=== PATIENT | male | born 1955 | race Caucasian/White ===

== ENCOUNTER → 2017-05-25 | Outpatient (CLI) | payer OTHER, SELFPAY ==
[~2017-05-25] VITALS: Ht 170.2 cm; Wt 98.5 kg
[~2017-05-25] MED LIST: ALPRAZOLAM 0.50.5 M1 PO; ALPRAZOLAM 0.50.5 MG PO; DOLOPHINE HCL10 MG PO; FLOMAX0.4 MG PO; METHADONE HCL 110 M1 PO; MINIPRIN81 MG PO; NEURONTIN 400400 M1 PO; NEURONTIN600 MG PO; NIZORAL120 ML TP; PAROXETINE HCL10 MG PO; PAXIL 20 MG TAB20 MG PO; PAXIL20 MG PO; PAXIL40 MG PO; STOOL SOFTENER1 EAC2 PO; XANAX 0.25 MG0.25 MG PO; XANAX 0.5 MG0.5 M1 PO; ZOCOR 20 MG TAB20 M1 PO
[2017-05-25 10:52] VITALS: BP 139/73
== END | disposition home or self-care (01) ==
LOC: PAIN 06:44
DX: G90.512 Complex regional pain syndrome I of left upper limb (principal); F41.9 Anxiety disorder, unspecified

== ENCOUNTER → 2017-12-14 | Outpatient (CLI) | payer OTHER ==
[~2017-12-14] VITALS: Ht 170.2 cm; Wt 99.8 kg
[~2017-12-14] MED LIST changes: +ASPIR 8181 MG PO; +NEURONTIN 300300 M1 PO
--- NOTE | ~2017-12-14 | HPC ---
[facility] [address] [address] PAIN MANAGEMENT CONSULTATION Name: KENPRASHANT HEADLEY Room #: REG ANNAMARIE BrittDayPushpa.#: [id number] Admission: 12/14/17 Attend Phys: Keny Gallo MD Discharge: Date of : 51 Report #: [id number] THIS REPORT FOR: //name// CC: [facility] physician/PCP Keny Gallo DATE OF SERVICE: 12/14/2017 Followup visit for chronic left upper extremity pain, complex regional pain syndrome and new onset gout, left lower extremity great toe. The patient returns to clinic today for medication management. He has been a patient of ours dating back to 1999. I have an opioid agreement signed over 10 years ago. We have reviewed this contract with him on several occasions. He has shown no misuse or abuse of medication over the years and has been quite stable. Today, he reports that his pain is an 8/10 mostly because of the gout that he is experiencing in his left foot. He was seen in the Emergency Room at , was started on a prednisone Dosepak. He has a solitary kidney and cannot be started on colchicine or allopurinol. This has been quite miserable particularly with the cold weather. This is improving slightly with the use of the prednisone. He also has pain that is constant in his left upper extremity related to nerve injury and complex regional pain syndrome. CURRENT MEDICATIONS: Methadone 10 mg 3 times a day, alprazolam 0.5 mg 3 times a day, paroxetine 10 mg at bedtime. He takes Senokot S as a softener daily to help with opioid-related constipation, this works effectively. He takes an 81 mg a day aspirin. The combination of opioid and benzodiazepine has been reviewed in the past. He has been on these medicines in combination dating back roughly 7-8 years without issue. He knows that in increased doses these can be lethal in particular for patients who are opioid naive. He will keep medications under close observation per terms of our agreement. He is disabled, but volunteers where he can. He is very faithful and attends his anabaptist. His kristen is an important influence in his life providing him with comfort and aide. PQRS review shows that he has a history of gout, but there is no history of osteoarthritis. He has several joints that ache and he most likely has degenerative joint disease. His BMI is 34.4 and he was counseled today about diet and wellness. Blood pressure 132/92, heart rate 76, respirations 14, O2 sats 98%. Pain intensity is 8/10. He is not a fall risk, does not use a walker. He has discussed possibly decreasing his Paxil due to dizziness, [address] [address] PAIN MANAGEMENT CONSULTATION Name: PRASHANT ROGERS Room #: REG [facility] Jasmyne.#: [id number] Admission: 12/14/17 Attend Phys: Keny Gallo MD Discharge: Date of : 51 Report #: [id number] however. He is not hypertensive. He does have an opioid agreement on his chart, most recently reviewed and resigned in 2017. Risk assessment tool suggests that he has moderate risks and his functional assessment tool is 67/70, suggesting a high impact of his pain on his life. Goals are to continue to be independent and functional to be able to assist others and to minimize his use of opioids if possible. We talked today about reducing his reliance on methadone. He is concerned about the future with further scrutiny on opioids and the treatment of intractable pain. PHYSICAL EXAMINATION: GENERAL: Pleasant, alert and oriented. VITAL SIGNS: Blood pressure 132/92, heart rate 76, BMI is 34.4. 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 Most of his pain remains around the scar of his hand. He has swelling and tenderness of the great toe on the left foot. IMPRESSION: 1. Chronic intractable pain, left upper extremity, complex regional pain syndrome. 2. Acute left foot pain, diagnosed as gout at the [facility] and he is currently on a prednisone Dosepak. 3. Management of high risk medications under terms of an opioid agreement. 4. Chronic anxiety disorder and situational depression. He was counseled today for 25 minutes. Medications were provided. Review of his opioid agreement once again and the CDC guidelines, and I plan to see him back in the Pain Clinic in 3 months. <ELECTRONICALLY SIGNED> By: Keny Gallo MD 01/10/18 [id number] [id number] Keny Gallo MD /nt
[2017-12-14 10:22] VITALS: BP 132/92
== END ==
LOC: PAIN 06:48
DX: G90.512 Complex regional pain syndrome I of left upper limb (principal); M10.9 Gout, unspecified; F11.90 Opioid use, unspecified, uncomplicated; F41.8 Other specified anxiety disorders; F32.9 Major depressive disorder, single episode, unspecified; Z79.899 Other long term (current) drug therapy

== ENCOUNTER → 2018-04-16 | Outpatient (CLI) | payer OTHER ==
[~2018-04-16] VITALS: Ht 170.2 cm; Wt 102.9 kg
--- NOTE | ~2018-04-16 | HPC ---
[facility] [address] [address] PAIN MANAGEMENT CONSULTATION Name: KENPRASHANT HEADLEY Room #: REG ANNAMARIE Jasmyne.#: [id number] Admission: 04/16/18 Attend Phys: Keny Gallo MD Discharge: Date of : 51 Report #: [id number] THIS REPORT FOR: //name// CC: [facility] physician/PCP Keny Gallo DATE OF SERVICE: 04/16/2018 Followup visit for management of medication for chronic intractable pain. The patient returns to clinic for 3-month followup. He has come to see me from [place], [place] traveling here by bus. He is in chronic pain, mostly in his left upper extremity where he has history of complex regional pain syndrome, which has always hurt him and continues to ache on a daily basis. He was suffering with gout at last visit, but it was treated effectively and he is not complaining of pain so much today. He reports that his pain is an 8/10, worsened by weather. Any sort of activity, lifting or cold weather seems to aggravate his pain as well. He has not been hospitalized and there has been no interval significant change in his health since his last visit here. He does not have a primary care physician and I have instructed him to try and locate someone. I would like for his blood pressure and other medications to be evaluated. He remains on methadone, which creates a high morphine milligram equivalency dose due to its 4:1 MME. We reviewed these issues involving the CDC guideline and also we have talked about the important aspect of his opioid agreement once again as we do it nearly every visit. He is grateful for the pain relief, feels that he is more functional when the pain is controlled with these good medications and denies any significant side effects. He has never had any evidence of misuse or abuse and we will continue at my discretion to order buccal drug screens. PQRS shows that he is not smoking or using alcohol. He is not a fall risk. He is on no blood thinners. He is not hypertensive typically, although I note his blood pressure today has a diastolic elevation at 89. I want him to see a primary care physician about getting on some medication. PHYSICAL EXAMINATION: Blood pressure 145/89, heart rate 73, BMI is 35.5. He moves from sitting to standing position, walks without difficulty. Examination of the left arm reveals a scar and local discomfort and tenderness with mild allodynia consistent with some hypersympathetic activity. IMPRESSION: 1. Chronic intractable pain, left upper extremity with complex regional pain [facility] [address] [place] [address] PAIN MANAGEMENT CONSULTATION Name: KENPRASHANTCamille HEADLEY Room #: REG CLAdalgisa Leonides#: [id number] Admission: 04/16/18 Attend Phys: Keny Gallo MD Discharge: Date of : 51 Report #: [id number] syndrome. 2. Management of high risk medications under terms of written opioid agreement. 3. Chronic anxiety disorder and depression. He is doing okay today. He will remain on his Paxil. He asked me today about bipolar illness and he thinks he may have that. I have talked to him about seeing a psychiatrist to determine whether or not he would be a candidate. We talked about additional drugs that are utilized including lithium and some of the antipsychotic medications such as Zyprexa, which have been used to treat bipolar illness. I want to be cautious about putting him on anything without having him see a clinical psychologist since he is already on 4 centrally acting medications through our clinic, methadone, Xanax, Paxil, and gabapentin. Typical doses were renewed today, methadone 10 mg t.i.d., Xanax 0.5 mg 3 times daily, chronic use for anxiety, Paxil 10 mg at bedtime, gabapentin 300 mg t.i.d. Followup visit planned in the pain clinic in 3 months. By: [id number] Keny Gallo MD /nt
[2018-04-16 13:34] VITALS: BP 145/89
== END ==
LOC: PAIN 06:58
DX: G90.512 Complex regional pain syndrome I of left upper limb (principal); F11.90 Opioid use, unspecified, uncomplicated; F41.9 Anxiety disorder, unspecified; F32.9 Major depressive disorder, single episode, unspecified

== ENCOUNTER → 2018-08-14 | Outpatient (CLI) | payer OTHER ==
[~2018-08-14] VITALS: Ht 170.2 cm; Wt 101.2 kg
--- NOTE | ~2018-08-14 | HPC ---
[facility] [address] [address] [place] [address] PAIN MANAGEMENT CONSULTATION Name: KENPRASHANT HEADLEY Room #: REG ANNAMARIE TawannaPushpa.#: [id number] Admission: 08/14/18 Attend Phys: Keny Gallo MD Discharge: Date of : 51 Report #: [id number] THIS REPORT FOR: //name// CC: [facility] physician/PCP Keny Gallo DATE OF SERVICE: 08/14/2018 Followup visit for chronic intractable pain. The patient has complex regional pain syndrome, left upper extremity. I have now been his treating physician for nearly 2 decades. He first came to our clinic in the . He was one of her first opioid agreement patients. I looked back and we have signed agreements in the , 2004 and also more recently in 2016. He has used his medications carefully and cautiously. I have checked the K-TRACS list things at his visit and he is true to his prescribing agreement. All medications provided from our clinic. He has an anxiety disorder and takes alprazolam also 3 times a day and we have had talks in the past about this combination, but he has shown great resilience and resistance to any sort of over sedation. He needs the anxiolytic and I would love to send him off to counseling, but he is not wealthy and money is always an object. He comes to me and we have spent a good 25 minutes counseling. Reports the pain is generally worsened by weather. The upcoming months move into cooler weather temperatures. I anticipate that his activities will decrease some. He has been able to take care of himself independently. He is grateful for the pain relief that allows him to do so. He has no significant side effects. PQRS shows that he continues to avoid use of tobacco and alcohol. He is a strong Tenriism. He is not a fall risk. He is on no blood thinners. His blood pressure has been slightly elevated on the diastolic side and I have again encouraged him to try and find a primary care physician, perhaps someone at closer to home. There is also [facility] close by that might be able to just monitor his blood pressure and help him with medication. PHYSICAL EXAMINATION: Today, his blood pressure is 141/90, heart rate 56. His BMI is 34.9. We discussed the importance of weight control. He is on no blood thinners. He is at moderate risk for addiction and so we see him and counseled appropriately. His opioid agreement was reviewed in detail. I let him check his right arm. He still has some allodynia. Scarring in his right hand prevents full use of that left hand and arm. [address] [address] PAIN MANAGEMENT CONSULTATION Name: KENPRASHANTCamille HEADLEY [facility] #: [facility]#: [id number] Admission: 08/14/18 Attend Phys: Keny Gallo MD Discharge: Date of : 51 Report #: [id number] IMPRESSION: 1. Chronic intractable pain, left upper extremity with complex regional pain syndrome. 2. Management of high risk medications under terms of an opioid agreement. 3. Chronic anxiety disorder and depression disorder. We will continue him on Paxil and p.r.n. alprazolam which he feels is extremely helpful. PLAN: I have talked to him again about the possibility of seeing a clinical psychologist, but I see a great reluctance in him in establishing that relationship. Followup visit planned in 3 months. By: [id number] Keny Gallo MD /nt
[2018-08-14 10:50] VITALS: BP 141/90
== END ==
LOC: PAIN 08-09 12:46
DX: G89.29 Other chronic pain (principal); F32.9 Major depressive disorder, single episode, unspecified; F41.9 Anxiety disorder, unspecified; Z79.899 Other long term (current) drug therapy

== ENCOUNTER → 2018-11-19 | Outpatient (CLI) | payer OTHER ==
[~2018-11-19] VITALS: Ht 170.2 cm; Wt 104.3 kg
--- NOTE | ~2018-11-19 | HPC ---
[facility] [place] [address] [place] [address] PAIN MANAGEMENT CONSULTATION Name: KENPRASHANTCamille HEADLEY Room #: REG ANNAMARIE Jasmyne.#: [id number] Admission: 11/19/18 Attend Phys: Keny Gallo MD Discharge: Date of : 51 Report #: [id number] THIS REPORT FOR: //name// CC: [facility] physician/PCP Keny Gallo DATE OF SERVICE: 11/21/2018 CHIEF COMPLAINT: Chronic right arm pain with complex regional pain syndrome and neuropathic pain. The patient has been a longstanding patient on opioid medication for over 20 years. He has been receiving medications under terms of our opioid agreement to have provided good pain relief and he has had no misuse or abuse. We have followed his medication prescriptions on the prescription drug monitoring program [employer] and he has been true to his prescriptions. He has chronic anxiety disorder and also takes alprazolam. I have discussed with him on several occasions the concern regarding the combination of alprazolam and an opioid. He has shown no issues of oversedation with these medications and they seem to help him deal with his chronic anxiety. Nonetheless, he is willing at today's visit to make an effort to taper his alprazolam and in the future, perhaps consider tapering his methadone, although he has remained fairly stable. PQRS REVIEW: 1. There is no history of osteoarthritis or rheumatoid arthritis. 2. His BMI is 36.0. We have discussed diet and exercise as weight control measures. 3. Pain intensity is reported at 9/10, although this is not constant and intermittent. 4. He is not a fall risk. 5. He is on no blood thinning medications. 6. No history of hypertension or treatment. 7. He is on opioid therapy for many years. I signed an opioid agreement and is considered at moderate risk for addiction by the opioid risk tool. He is followed carefully through the monitoring available. 8. He denies any history of recreational use, tobacco or current use of alcohol. PHYSICAL EXAMINATION: VITAL SIGNS: Blood pressure is 146/100, heart rate 66, respirations 16. GENERAL: He is pleasant, but somewhat anxious and mildly depressed. EXTREMITIES: Examination of the right hand reveals good geometrician, although he complains of some new pain on the right. His left hand shows a claw hand with allodynia and scarring. Light touch discomfort is noted consistent with [facility] [address] [place] [address] PAIN MANAGEMENT CONSULTATION Name: PRASHANT ROGERS Room #: REG [facility] Jasmyne.#: [id number] Admission: 11/19/18 Attend Phys: Keny Gallo MD Discharge: Date of : 51 Report #: [id number] allodynia of complex regional pain syndrome. IMPRESSION: 1. Chronic intractable pain, left upper extremity with complex regional pain syndrome. 2. Chronic anxiety disorder and depression. 3. Management of polypharmacy and high risk medications. RECOMMENDATIONS: Our discussion today involved review of his opioid agreement and the discussions regarding tapering of benzodiazepine and perhaps attempting to find a lower dose of methadone in the future if possible. We talked about nonpharmacologic stress management techniques and the important wellness behaviors that can enhance mood. He falls heavily on his [employer] kristen. Finally, he had been taking Paxil 3 times a day. I think this is an excessive dose. He had discontinued his Paxil because he ran out taking in inappropriately. I have encouraged him because of his depression to restart Paxil, which has been helpful in the past as single tablet per day. I am not sure how he got confused. It was renewed today in addition to his medication. DISCHARGE MEDICATIONS: Include methadone 10 mg t.i.d., paroxetine 10 mg once daily, gabapentin 300 mg t.i.d. and alprazolam 0.5 mg b.i.d. p.r.n. severe anxiety. FOLLOWUP: Followup visit planned in 3 months. Complex office visit 25 minutes. By: [id number] Keny Gallo MD /nt
[2018-11-19 11:05] VITALS: BP 146/101
--- NOTE | 2018-11-19 11:07 | NUR ---
Pain Clinic Assessment: 1. History of Osteoarthritis: Not Applicable History of Rheumatoid Arthritis: Not Applicable 2. Height: 5 ft. 7 in. 170.2 cm. Weight: 230.0 lb. oz. 104.328 kg. Patient's BMI: 36.0 3. Vital Signs: BP: 146/101 Pulse: 66 Resp: 16 Temp: 02 Sat: 99 ECG Mon: 4. Pain Intensity: 9 5. Fall Risk: Dizziness: N Needs help standing or walking: N Fallen in the last 3 months: N Fall risk comments: 6. Patient on Blood Thinner: None 7. History of Hypertension: N 8. Opioid Therapy greater than 6 weeks: Y Opiate Contract Signed: 01/12/17 9. Risk Assessment Tool Provided: MOD RISK-7 10. Functional Assessment Tool: 11. Recreational Drug Use: Past greater than 3 mos Drug Type: Tobacco Use: Never Smoker Tobacco Type: Amount or Packs/day: How Many Years: Alcohol Use: Past use Frequency: Quant:
== END ==
LOC: PAIN 07:33
DX: G90.50 Complex regional pain syndrome I, unspecified (principal); G89.4 Chronic pain syndrome; F32.9 Major depressive disorder, single episode, unspecified; F41.9 Anxiety disorder, unspecified; Z79.899 Other long term (current) drug therapy

== ENCOUNTER → 2018-12-17 | Outpatient (CLI) | payer OTHER ==
[~2018-12-17] VITALS: Ht 167.6 cm; Wt 100.5 kg
[2018-12-17 12:42] VITALS: BP 143/99
--- NOTE | 2018-12-17 12:44 | NUR ---
Pain Clinic Assessment: 1. History of Osteoarthritis: Not Applicable History of Rheumatoid Arthritis: Not Applicable 2. Height: 5 ft. 6 in. 167.6 cm. Weight: 221.6 lb. oz. 100.517 kg. Patient's BMI: 35.8 3. Vital Signs: BP: 143/99 Pulse: 72 Resp: 18 Temp: 02 Sat: 97 ECG Mon: 4. Pain Intensity: 8 5. Fall Risk: Dizziness: N Needs help standing or walking: N Fallen in the last 3 months: N Fall risk comments: 6. Patient on Blood Thinner: None 7. History of Hypertension: N 8. Opioid Therapy greater than 6 weeks: Y Opiate Contract Signed: 01/12/17 9. Risk Assessment Tool Provided: MOD RISK-7 10. Functional Assessment Tool: 11. Recreational Drug Use: Past greater than 3 mos Drug Type: Tobacco Use: Never Smoker Tobacco Type: Amount or Packs/day: How Many Years: Alcohol Use: Past use Frequency: Quant:
--- NOTE | 2018-12-19 15:34 | HPC ---
[facility] [address] [place] [address] PAIN MANAGEMENT CONSULTATION Name: KENPRASHANT Room #: REG ANNAMARIE BrittDayPushpa.#: [id number] Admission: 12/17/18 Attend Phys: Keny Gallo MD Discharge: Date of : 51 Report #: [id number] THIS REPORT FOR: //name// CC: [facility] physician/PCP Keny Gallo DATE OF SERVICE: 12/17/2018 CHIEF COMPLAINT: Right arm pain severe with neuropathic features, complex regional pain syndrome and cervical radiculopathy. The patient returns to pain clinic today for cervical epidural injection. These have been helpful in the past. He has been tapering his Paxil and alprazolam. He has gotten so much trouble at the pharmacy about being on alprazolam that he is going to go off of it. He has had an anxiety disorder for decades. Both of these medications have been helpful in the past, but he seems to be doing well, as he tapers off. Methadone is another story. Without the methadone, his pain is severe, 9/10 and he is unable to function. We will see how he does tapering off these other two centrally-acting medications. He may be a candidate for buspirone, but it is now on backorder I have read in one of the medical journals last evening. PHYSICAL EXAMINATION: GENERAL: He is pleasant, slightly depressed, alert. VITAL SIGNS: Blood pressure is 145/99, heart rate 72, respirations 18. NECK: He has pain with neck flexion, extension and rotation. Tenderness across the cervical spine. EXTREMITIES: The left arm demonstrates scarring in the hand. There is discomfort and allodynia noted in the forearm and in the upper arm. Caterpillar Mechanic strength is diminished markedly. IMPRESSION AND PLAN: 1. Chronic intractable pain, left upper extremity with complex regional pain syndrome and cervical radiculopathy. 2. Chronic anxiety disorder and depression. Tapering off of medication. We will follow closely. 3. Management of high risk medications. He has medications to carry him through December. I plan to see him back in January for medication management. PLAN: Epidural steroid injection cervical C6-C7 under fluoroscopic guidance. PROCEDURE: After informed consent, the patient was taken to fluoroscopic suite, placed prone, skin prepped with ChloraPrep. Skin anesthetized over the C6-C7 interspace. A 20-gauge Tuohy epidural needle advanced at first attempt into the epidural space with loss of resistance technique. There was no blood nor CSF [address] [address] PAIN MANAGEMENT CONSULTATION Name: PRASHANT ROGERS Room #: REG CLI Leonides#: [id number] Admission: 12/17/18 Attend Phys: Keny Gallo MD Discharge: Date of : 51 Report #: [id number] aspirated. 1 mL of Omnipaque injected. Good spread of dye observed in the epidural space following bilateral distribution, was followed by 3 mL of 0.5% lidocaine mixed with 80 mg of triamcinolone. He tolerated the procedure well. He was followed in Recovery Room for about 45 minutes and discharged with improvement in pain intensity. Followup visit planned as needed. <ELECTRONICALLY SIGNED> By: Keny Gallo MD 12/19/18 1534 [id number] [id number] Keny Gallo MD /nt
== END | disposition home or self-care (01) ==
LOC: PAIN 07:03
DX: M54.12 Radiculopathy, cervical region (principal); G90.512 Complex regional pain syndrome I of left upper limb; F41.8 Other specified anxiety disorders; F32.89 Other specified depressive episodes; Z79.891 Long term (current) use of opiate analgesic; Z79.82 Long term (current) use of aspirin; Z79.899 Other long term (current) drug therapy

== ENCOUNTER → 2019-03-04 | Outpatient (CLI) | payer OTHER ==
[~2019-03-04] VITALS: Ht 167.6 cm; Wt 95.1 kg
[~2019-03-04] MED LIST changes: +NORVASC5 MG PO
[2019-03-04 12:49] VITALS: BP 123/73
--- NOTE | 2019-03-04 13:10 | NUR ---
Pain Clinic Assessment: 1. History of Osteoarthritis: Not Applicable History of Rheumatoid Arthritis: Not Applicable 2. Height: 5 ft. 6 in. 167.6 cm. Weight: 209.6 lb. oz. 95.074 kg. Patient's BMI: 33.8 3. Vital Signs: BP: 123/73 Pulse: 70 Resp: 16 Temp: 02 Sat: 97 ECG Mon: 4. Pain Intensity: 8 5. Fall Risk: Dizziness: N Needs help standing or walking: N Fallen in the last 3 months: N Fall risk comments: 6. Patient on Blood Thinner: None 7. History of Hypertension: N 8. Opioid Therapy greater than 6 weeks: Y Opiate Contract Signed: 01/12/17 9. Risk Assessment Tool Provided: MOD RISK-7 10. Functional Assessment Tool: 11. Recreational Drug Use: Past greater than 3 mos Drug Type: Tobacco Use: Never Smoker Tobacco Type: Amount or Packs/day: How Many Years: Alcohol Use: Past use Frequency: Quant:
--- NOTE | 2019-03-07 12:23 | HPC ---
[facility] [address] [address] PAIN MANAGEMENT CONSULTATION Name: KENPRASHANT KAYODE Room #: REG ANNAMARIE Jasmyne.#: [id number] Admission: 03/04/19 ������������������ Attend Phys: Keny Gallo MD Discharge: ������������������ Date of : 51 Report #: [id number] THIS REPORT FOR: //name// CC: FAM physician/PCP Keny Gallo DATE OF SERVICE: 03/04/2019 No family physician. The patient returns to pain clinic today in followup and seems to be in his old self. There was a period of time around October where he seemed to be a bit more anxious and paranoid. He had been off his Paxil and then took it too heavily. He is now back on 10 mg once a day and that seems to be just right. His pain is well controlled. His mood disorder seems to be improved, Seems to be happier. He is taking methadone 10 mg 3 times a day with no significant side effects, this has helped significantly. He has also had good relief it appears with cervical epidural injection we performed for him at last visit. PQRS review is positive for a BMI of 33.8 and a pain intensity of 8/10. He is not a fall risk. He is on no blood thinners. He was recently started on amlodipine. He has an opioid agreement on his chart, is at moderate risk for addiction with score 7/10. Denies use of tobacco and alcohol. PHYSICAL EXAMINATION: GENERAL: He is really pleasant today, seems more like relaxed ____ I have seen on so many occasions. VITAL SIGNS: His blood pressure is 123/73, heart rate 70, respirations 16, O2 sat 97, height 5 feet 6 inches, weight 209 pounds. MUSCULOSKELETAL: His cervical range of motion is excellent. Left arm is nontender to touch. He has decreased facs teacher strength with scarring noted in the left upper extremity. No allodynia is noted today after the epidural. IMPRESSION: 1. Chronic intractable pain, left upper extremity with complex regional pain syndrome and cervical radiculopathy. This is much improved following epidural injection performed in December. 2. Chronic anxiety and depression, much improved on Paxil 10 mg. I have encouraged him to stay at this dose. 3. Management of high risk medication, methadone 10 mg t.i.d. This calculates to an MME of 90. PLAN: Medications renewed for him under terms of our agreement. He will carefully safeguard his medications. He is grateful for the improvement in [address] [address] PAIN MANAGEMENT CONSULTATION Name: PRASHANT ROGERS Room #: REG CLI [facility].#: [id number] Admission: 03/04/19 ������������������ Attend Phys: Keny Gallo MD Discharge: ������������������ Date of : 51 Report #: [id number] day-to-day function and also a reduction in pain that he achieves from his medicines. He will safeguard his medication carefully. Followup visit planned in 3 months. ��������������������������������������������� <ELECTRONICALLY SIGNED> ���������������������������������������� By: Keny Gallo MD ��������������������������������������������� 03/07/19 1223 [id number] Keny Gallo MD /marco
== END ==
LOC: PAIN 07:13
DX: G90.522 Complex regional pain syndrome I of left lower limb (principal); M54.12 Radiculopathy, cervical region; F41.9 Anxiety disorder, unspecified; F32.9 Major depressive disorder, single episode, unspecified; Z79.891 Long term (current) use of opiate analgesic

== ENCOUNTER → 2019-07-01 | Outpatient (CLI) | payer OTHER ==
[~2019-07-01] VITALS: Ht 167.6 cm; Wt 98.2 kg
[~2019-07-01] MED LIST changes: +PAXIL10 MG PO
[2019-07-01 10:49] VITALS: BP 135/85
--- NOTE | 2019-07-01 10:56 | NUR ---
Pain Clinic Assessment: 1. History of Osteoarthritis: Not Applicable History of Rheumatoid Arthritis: Not Applicable 2. Height: 5 ft. 6 in. 167.6 cm. Weight: 216.4 lb. oz. 98.159 kg. Patient's BMI: 34.9 3. Vital Signs: BP: 135/85 Pulse: 66 Resp: 16 Temp: 02 Sat: 100 ECG Mon: 4. Pain Intensity: 8 5. Fall Risk: Dizziness: N Needs help standing or walking: N Fallen in the last 3 months: N Fall risk comments: 6. Patient on Blood Thinner: None 7. History of Hypertension: N 8. Opioid Therapy greater than 6 weeks: Y Opiate Contract Signed: 01/12/17 9. Risk Assessment Tool Provided: MOD RISK-7 10. Functional Assessment Tool: 11. Recreational Drug Use: Past greater than 3 mos Drug Type: Tobacco Use: Never Smoker Tobacco Type: Amount or Packs/day: How Many Years: Alcohol Use: Past use Frequency: Quant:
--- NOTE | 2019-07-02 08:17 | HPC ---
[facility] [address] [place] [address] PAIN MANAGEMENT CONSULTATION Name: KENPRASHANTCamille HEADLEY Room #: REG [facility] Jasmyne.#: [id number] Admission: 07/01/19 Attend Phys: Vero Travis Discharge: Date of : 51 Report #: [id number] THIS REPORT FOR: //name// CC: Vero Travis [facility] physician/PCP DATE OF SERVICE: 07/01/2019 CHIEF COMPLAINT: Chronic intractable pain and complex regional pain syndrome and cervical radiculopathy. HISTORY OF PRESENT ILLNESS: This is a very pleasant 63-year-old gentleman who returns to the pain clinic today for refill of his medications that he uses to help treat his ongoing complex regional pain syndrome in his left upper extremity as well as his cervical radiculopathy. He would also like to discuss his Paxil. He feels that his antidepressant is not working as well, wondering if he should come off of this or what options that we have for him. He still tells me that he suffers from depression and anxiety both. The patient rates his pain score an 8/10 today, is an achy feeling, worse with weather changes and the medication he takes are very beneficial. ALLERGIES: No known drug allergies. CURRENT LIST OF MEDICATIONS: Amlodipine 5 mg, Paxil 10 mg, methadone 10 mg 3 times a day, gabapentin 300 mg 3 times a day, aspirin and stool softener. PQRS: 1. The patient denies any osteoarthritis or rheumatoid arthritis. 2. Height is 5 feet 6 inches, weight is 209, BMI is 33. 3. Vital signs 123/73, pulse is 70, respirations 16, oxygen sat is 97. 4. Pain score is 8/10. 5. Denies dizziness, does not need help walking or standing, has not fallen in the last 3 months. 6. The patient is not on any blood thinners. He does take medicine for hypertension. 7. Opioid therapy is greater than 6 weeks; therefore, an opioid signed contract is on the chart. His risk assessment tool is moderate. Functional assessment is 53/70. 8. Recreational drug use in the past. He is not a smoker and does not drink alcohol. According to the prescription monitoring system, the patient is filling appropriately for his medications. He is due for those to be filled today. PHYSICAL EXAMINATION: GENERAL: This is a very pleasant 63-year-old gentleman who appears his stated [facility] [address] [place] [address] PAIN MANAGEMENT CONSULTATION Name: PRASHANT ROGERS Room #: REG ANNAMARIE Coyle#: [id number] Admission: 07/01/19 Attend Phys: Vero Travis Discharge: Date of : 51 Report #: [id number] age, slightly depressed, who is alert and orientated. HEENT: Normocephalic, atraumatic. Extraocular eye muscles are intact. Mucous membranes are moist. MUSCULOSKELETAL: Cervical range of motion is adequate. His left arm is nontender to the touch. He does keep it in a guarded position. 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 No allodynia noted and tenderness across his cervical spine. IMPRESSION: 1. Chronic intractable pain, left upper extremity pain with complex regional pain syndrome. 2. Cervical radiculopathy. 3. Chronic anxiety and depression. 4. Management of high risk medications on methadone. We reviewed the fact that opiate medications are being used to provide analgesia adequate to support activities of daily living, not attempting to achieve a specific pain score on the 0-10 Visual Analog Scale. The current opiate medications are providing sufficient analgesia to allow the patient to participate in activities of daily living. The patient is not exhibiting any aberrant behavior suggestive of drug diversion. The patient is not having any adverse reactions to medications. The patient is not suffering from daytime somnolence or mental acuity changes. The patient is managing opiate-induced constipation with appropriate gydd-vtz-[id number] agents and dietary considerations. The patient was counseled on concern for caution with operating a motor vehicle while using opiate medications. A physical exam was performed and the patient's functional status was evaluated. All patients with back pain were advised against the bed rest greater than 4 days and were advised to return to normal activities. Pain score assessment was noted and the treatment plan was reviewed with the patient. All current medications, both prescribed and OTC were reviewed and reconciled on the electronic medical record. Tobacco screening was accomplished and smoking cessation was advised when indicated. BMI was noted and diet/exercise modification was recommended for all patients following outside normal parameters. I reviewed with the patient today their responsibilities to safeguard prescription medications, reviewed their responsibility to utilize medications only as prescribed by the physician. They are to seek and receive pain medications only from 1 physician group ( [facility]). They are to use 1 pharmacy and keep the clinic informed if they change pharmacies. Their responsibilities include making followup visits in a timely fashion and to avoid abrupt discontinuation of medication usage. Their responsibilities further include bringing their medications (bottles from the pharmacy with residual pills) to the visit for possible confirmation of pill counts and the patient [address] [address] PAIN MANAGEMENT CONSULTATION Name: PRASHANT ROGERS Room #: REG CLAdalgisa Coyle#: [id number] Admission: 07/01/19 Attend Phys: Vero Travis Discharge: Date of : 51 Report #: [id number] understands it is their responsibility to submit to random drug screens to ensure both that the medications prescribed are present, and that no other controlled substances are present. All prescriptions provided today were generated electronically. PLAN: 1. We discussed treatment options with the patient today. The patient finds the methadone very beneficial in controlling his pain. This medicine was refilled 10 mg 3 times a day #90 for today for an 8-week release. This places him at 90 MME. 2. Gabapentin 300 mg t.i.d., #90 with 2 additional refills were given. 3. We discussed his Paxil dose, at first the patient felt that it was not beneficial and wanted to go off this medicine, then with further discussion we decided to increase this to 20 mg a day. The patient is to take two 10 mg tablets for at least a month before he does not feel that is beneficial. This should aid with his depression and his anxiety symptoms. The patient had been on alprazolam in the past, but had stopped that due to the opioid, benzodiazepine concerns that the CDC is warning people against. Scripts given for #60 with 2 additional refills. The patient understands to take 2 tablets and is hopeful that this will help some of his depression. He will call in 1 month time period. If he finds this beneficial, then we will call in a prescription for 20 mg tablets and avoid the refills for the 10 mg 4. The patient is seen in collaboration today with Dr. Keny Gallo. <ELECTRONICALLY SIGNED> By: Vero Travis 07/02/19 [id number]
== END ==
LOC: PAIN 06:55
DX: M54.12 Radiculopathy, cervical region (principal); G90.50 Complex regional pain syndrome I, unspecified; F41.9 Anxiety disorder, unspecified; F32.9 Major depressive disorder, single episode, unspecified; Z79.891 Long term (current) use of opiate analgesic

== ENCOUNTER → 2019-10-24 | Outpatient (CLI) | payer OTHER ==
[~2019-10-24] VITALS: Ht 167.6 cm; Wt 101.3 kg
[~2019-10-24] MED LIST changes: +NEURONTIN300 MG PO
[2019-10-24 13:10] VITALS: BP 141/75
--- NOTE | 2019-10-24 13:31 | NUR ---
Pain Clinic Assessment: 1. History of Osteoarthritis: Not Applicable History of Rheumatoid Arthritis: Not Applicable 2. Height: 5 ft. 6 in. 167.6 cm. Weight: 223.4 lb. oz. 101.334 kg. Patient's BMI: 36.1 3. Vital Signs: BP: 141/75 Pulse: 65 Resp: 16 Temp: 02 Sat: 97 ECG Mon: 4. Pain Intensity: 8-9 5. Fall Risk: Dizziness: N Needs help standing or walking: N Fallen in the last 3 months: Y Fall risk comments: 6. Patient on Blood Thinner: None 7. History of Hypertension: N 8. Opioid Therapy greater than 6 weeks: Y Opiate Contract Signed: 01/12/17 9. Risk Assessment Tool Provided: MOD RISK-7 10. Functional Assessment Tool: 11. Recreational Drug Use: Past greater than 3 mos Drug Type: Tobacco Use: Never Smoker Tobacco Type: Amount or Packs/day: How Many Years: Alcohol Use: Past use Frequency: Quant:
--- NOTE | 2019-10-28 08:38 | HPC ---
[facility] [address] [place] [address] PAIN MANAGEMENT CONSULTATION Name: KENPRASHANTCamille HEADLEY Room #: REG [facility] Leonides#: [id number] Admission: 10/24/19 Attend Phys: Vero Travis Discharge: Date of : 51 Report #: [id number] THIS REPORT FOR: //name// CC: Vero Glalo MD DATE OF SERVICE: 10/24/2019 CHIEF COMPLAINT: Chronic intractable pain, complex pain syndrome and cervical radiculopathy. HISTORY OF PRESENT ILLNESS: This is a very pleasant 64-year-old gentleman who returned to the pain clinic today for a refill of his medications that he uses to help treat his ongoing cervical radiculopathy as well as his complex regional pain syndrome in his left upper extremity. He feels that the medications are very beneficial in controlling his pain. He rates that though an 8-9 today, he feels that the weather has flared it slightly. He also reports that he broke his left clavicle that has increased his pain some. He fell off a ladder in September. He did seek medical attention at [facility] where he was told to wear a sling and then to gradually return to activities. He reports tenderness still in his left clavicle area as well as decreased range of motion, but he feels that is improving each day. The patient denies any problems with constipation or daytime sleepiness as a result of his medications today. He would like refills of his opioids. ALLERGIES: No known drug allergies. CURRENT LIST OF MEDICATIONS: Paxil 20 mg daily, gabapentin 300 mg t.i.d., methadone 10 mg t.i.d., amlodipine 5 mg, aspirin daily and stool softener. PQRS: 1. The patient denies a history of rheumatoid arthritis. 2. Height is 5 feet 6 inches, weight is 223, BMI is 36. 3. Vital signs 141/75, pulse is 65, respirations 16, oxygen sat is 97. 4. Pain score is 8-9. 5. Denies dizziness, does not need help walking or standing, has fallen in the last 3 months. 6. The patient is not on any blood thinners, but does take medicine for hypertension. Blood pressure is better controlled today. 7. Opioid therapy is greater than 6 weeks; therefore, an opioid agreement is on the chart. Risk assessment tool is moderate. Functional assessment is 53/70. 8. Recreational drug use in the past. He is not a tobacco smoker and does not drink alcohol. [address] [address] PAIN MANAGEMENT CONSULTATION Name: KENPRASHANT KAYODE [id number] Admission: 10/24/19 Attend Phys: Vero Travis Discharge: Date of : 51 Report #: [id number] According to the prescription monitoring system, the patient is filling appropriately for his medications and is due to fill those again today. There is a drug screen on the chart in the past. We will recheck that at his next appointment. According to the CDC guidelines, his morphine mEq is 90 per day; therefore, he is seen every 3 months. PHYSICAL EXAMINATION: GENERAL: This is an alert and orientated 64-year-old gentleman who appears his stated age. He is slightly more upbeat, less depressed today, rating his pain score at 8/9. HEENT: Normocephalic, atraumatic. Extraocular eye muscles are intact. Mucous membranes are moist. MUSCULOSKELETAL: He has tenderness over his left clavicular area. He has limited range of motion in his left upper extremity. Raising his left arm does increase pain in his clavicle. His left arm is nontender to the touch from his complex regional pain syndrome. He does keep it in a guarded position. 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 No allodynia noted. IMPRESSION: 1. Chronic intractable pain, left upper extremity pain with complex regional pain syndrome. 2. Cervical radiculopathy. 3. Chronic anxiety and depression. 4. Recent left clavicular fracture. 5. Management of high risk medications on methadone. We reviewed the fact that opiate medications are being used to provide analgesia adequate to support activities of daily living, not attempting to achieve a specific pain score on the 0-10 Visual Analog Scale. The current opiate medications are providing sufficient analgesia to allow the patient to participate in activities of daily living. The patient is not exhibiting any aberrant behavior suggestive of drug diversion. The patient is not having any adverse reactions to medications. The patient is not suffering from daytime somnolence or mental acuity changes. The patient is managing opiate-induced constipation with appropriate mktx-uov-qvsaqar agents and dietary considerations. The patient was counseled on concern for caution with operating a motor vehicle while using opiate medications. PLAN: 1. We discussed treatment options with the patient today. The patient is having slight increase in pain due to a recent fracture. No surgery was needed and the patient did not take any additional pain medicines throughout this time. He did use a sling at first and has been healing quite nicely from this fracture of his left clavicle. 2. We will refill his methadone 10 mg, #90, today for a total of 3 months and his gabapentin 300 mg t.i.d., #90, with 5 additional refills. These were both [address] [address] PAIN MANAGEMENT CONSULTATION Name: PRASHANT ROGERS Room #: REG [facility]..#: [id number] Admission: 10/24/19 Attend Phys: Vero Travis Discharge: Date of : 51 Report #: [id number] sent electronically. 3. The patient is not needing a refill of his Paxil at this time. He does take 20 mg a day, which he has been finding very beneficial with his depression and anxiety and also helping him keep his nightmares away at bay. He did question whether we should increase this medication or switch to a different antidepressant. I explained at this time since he is doing quite well. We will keep him where he is. We could possibly increase in the future if need be or switch to another medication like Cymbalta that does have components of antidepressant and also a neuropathy component. It does help with neuropathy as well, but currently, we will continue the Paxil. The patient verbalizes understanding. 4. The patient discharged to home. He is seen today in collaboration with Dr. Keny Gallo. <ELECTRONICALLY SIGNED> By: Vero Travis 10/28/19 0838 [id number] [id number] Vero Travis /nt
== END ==
LOC: PAIN 06:50
DX: G89.4 Chronic pain syndrome (principal); M54.12 Radiculopathy, cervical region; F41.9 Anxiety disorder, unspecified; F32.9 Major depressive disorder, single episode, unspecified; Z79.899 Other long term (current) drug therapy; Z88.8 Allergy status to other drugs, medicaments and biological substances

== ENCOUNTER → 2020-01-27 | Outpatient (CLI) | payer OTHER ==
[~2020-01-27] VITALS: Ht 167.6 cm; Wt 102.4 kg
[2020-01-27 10:36] VITALS: BP 126/80
--- NOTE | 2020-01-27 10:46 | NUR ---
Pain Clinic Assessment: 1. History of Osteoarthritis: Not Applicable History of Rheumatoid Arthritis: Not Applicable 2. Height: 5 ft. 6 in. 167.6 cm. Weight: 225.8 lb. oz. 102.422 kg. Patient's BMI: 36.5 3. Vital Signs: BP: 126/80 Pulse: 73 Resp: 14 Temp: 02 Sat: 95 ECG Mon: 4. Pain Intensity: 8-9 5. Fall Risk: Dizziness: N Needs help standing or walking: N Fallen in the last 3 months: N Fall risk comments: 6. Patient on Blood Thinner: None 7. History of Hypertension: N 8. Opioid Therapy greater than 6 weeks: Y Opiate Contract Signed: 01/12/17 9. Risk Assessment Tool Provided: MOD RISK-7 10. Functional Assessment Tool: 11. Recreational Drug Use: Current within past 3 mos Drug Type: MARIJUANA Tobacco Use: Never Smoker Tobacco Type: Amount or Packs/day: How Many Years: Alcohol Use: Past use Frequency: Quant:
--- NOTE | 2020-01-28 08:51 | HPC ---
[facility] [address] [place] [address] PAIN MANAGEMENT CONSULTATION Name: KENPRASHANT HEADLEY Room #: REG [facility] MMaría.#: [id number] Admission: 01/27/20 Attend Phys: Vero Travis Discharge: Date of : 51 Report #: [id number] THIS REPORT FOR: cc: Thee Poe MD,Thee Travis,Vero SANTANA ~ CC: Vero Poe DATE OF SERVICE: 01/27/2020 CHIEF COMPLAINT: Chronic intractable pain, complex pain syndrome and cervical radiculopathy. HISTORY OF PRESENT ILLNESS: This is a very pleasant, slightly depressed 64-year-old gentleman who returns to the pain clinic today for refill of his medications that he takes for his ongoing cervical pain and complex regional pain syndrome. He is rating his pain score 8-9 currently in his left hand and neck. He feels that the weather changes make it worse as well as movement. He feels that the medications are helpful, though he is reporting today he is very down and depressed. He is sleeping several hours a day. He reports he tries to get up in the morning and be as active as possible, but if he does lay down, he just wants to sleep the rest of the day, he had seen a psychiatrist in the past after his injury to his left arm, but has not seen a counselor in quite some time. He is thinking that maybe he needs to go see someone again. The patient reports he has no real friends. He is very isolated at home. He states he has his animals, but in the past year he has lost 2 dogs and one is very sick currently. He is just worried about if something happened to him who would take care of his affairs. He is not suicidal. He is just trying to plan ahead. ALLERGIES: No known drug allergies. CURRENT LIST OF MEDICATIONS: Methadone 10 mg t.i.d., gabapentin 300 mg t.i.d., Paxil 20 mg, Norvasc, aspirin, and Senokot. PQRS: 1. He denies a history of osteo or rheumatoid arthritis. 2. Height is 5 feet 6 inches, weight is 225. BMI is 36. 3. Vital Signs: 126/80, pulse is 73, respirations 14, oxygen sat is 95. 4. Pain score 8-9. 5. Denies dizziness, does not need help walking or standing, has not fallen in the last 3 months. 6. The patient is not on any blood thinners or medicine for hypertension. 7. Opioid therapy is greater than 6 weeks; therefore, an opioid signed contract is on the chart. Risk assessment tool is moderate. Functional assessment is 53/70[place] [address] PAIN MANAGEMENT CONSULTATION Name: PRASHANT ROGERS Room #: REG ANNAMARIE Coyle#: [id number] Admission: 01/27/20 Attend Phys: Vero Travis Discharge: Date of : 51 Report #: [id number] 8. Recreational drug use in the past. He is not a smoker and does not drink alcohol. According to the prescription monitoring system, the patient is filling his medicines appropriately, filling them at one pharmacy. He is due to fill those medicines soon. According to the CDC guidelines, his MME is 90. He is filling from one prescriber only. We will check a random drug screen on him at his next visit. PHYSICAL EXAMINATION: GENERAL: This is alert, orientated and depressed gentleman of 64, who appears his stated age, placing his current pain score today at 8-9. HEENT: Normocephalic, atraumatic. Extraocular eye muscles are intact. Mucous membranes are moist. Reddened area on his face with no breakdown, no tender to the touch. MUSCULOSKELETAL: He has limited range of motion in his left upper extremity. His left arm is nontender to the touch from his complex regional pain syndrome. He does keep it in a guarded position. He is no allodynia noted. 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 IMPRESSION: 1. Chronic intractable pain, left upper extremity pain with complex regional pain syndrome. 2. Cervical radiculopathy. 3. Chronic anxiety and depression. 4. Management of high risk medications under terms of written opioid agreement. We reviewed the fact that opiate medications are being used to provide analgesia adequate to support activities of daily living, not attempting to achieve a specific pain score on the 0-10 Visual Analog Scale. The current opiate medications are providing sufficient analgesia to allow the patient to participate in activities of daily living. The patient is not exhibiting any aberrant behavior suggestive of drug diversion. The patient is not having any adverse reactions to medications. The patient is not suffering from daytime somnolence or mental acuity changes. The patient is managing opiate-induced constipation with appropriate xzui-ejs-slxiblr agents and dietary considerations. The patient was counseled on concern for caution with operating a motor vehicle while using opiate medications. A physical exam was performed and the patient's functional status was evaluated. All patients with back pain were advised against the bed rest greater than 4 days and were advised to return to normal activities. Pain score assessment was noted and the treatment plan was reviewed with the patient. All current medications, both prescribed and OTC were reviewed and reconciled on the electronic medical record. Tobacco screening was accomplished and smoking [address] [place] [address] PAIN MANAGEMENT CONSULTATION Name: KENPRASHANTCamille HEADLEY Room #: REG [facility]..#: [id number] Admission: 01/27/20 Attend Phys: Vero Travis Discharge: Date of : 51 Report #: [id number] cessation was advised when indicated. BMI was noted and diet/exercise modification was recommended for all patients following outside normal parameters. I reviewed with the patient today their responsibilities to safeguard prescription medications, reviewed their responsibility to utilize medications only as prescribed by the physician. They are to seek and receive pain medications only from 1 physician group ( [facility]). They are to use 1 pharmacy and keep the clinic informed if they change pharmacies. Their responsibilities include making followup visits in a timely fashion and to avoid abrupt discontinuation of medication usage. Their responsibilities further include bringing their medications (bottles from the pharmacy with residual pills) to the visit for possible confirmation of pill counts and the patient understands it is their responsibility to submit to random drug screens to ensure both that the medications prescribed are present, and that no other controlled substances are present. All prescriptions provided today were generated electronically. PLAN: 1. Today, we discussed several options of medication management. The patient is reporting increasing depression. He is alone most of the day. He states he has no friends. He has been worried about who he should have his executor of his estate since he has no friends. He is going to see his insurance compliance analyst today and discussed this option with them. I encouraged the patient that to speak with a counselor and I also offered to increase his antidepressant. The patient reports that he had seen a counselor in the past at [facility]. He will call them to see if he can make an appointment. He reports he feels isolated and that makes him depressed at times. Also, the winter season, he is feeling more depression. The patient reports he is not suicidal. He understands he needs to speak with somebody he found it helpful in the past. He will call and make an appointment. 2. The patient reports to me that his A1c was elevated according to his primary care doctor's nurse. They were going to call in a medicine. He states this was 3 weeks ago. He has not started any new medicine. He is unsure of the name. I encouraged the patient to call them today and speak with somebody that may help with some of his symptoms of feeling tired and without energy. His blood sugars may be elevated and he is not aware of it, he does not check them at all. 3. The patient is on methadone 10 mg 3 times a day. We will send this electronically for 3 months. The patient is not in need of gabapentin or Paxil today. 4. We will obtain a urine drug screen on the patient at the next visit. We briefly talked about legalized marijuana in the state of [place]. He does live in [place] where it is not legalized. The patient states he does not want to use this medicine. He feels that he had had a problem with alcohol in the past and he worries that if that may be very addictive to him. The patient reports that he knows people that do use marijuana for pain control. [facility] [address] [place] [address] PAIN MANAGEMENT CONSULTATION Name: PRASHANT ROGERS Room #: REG CLAdalgisa Coyle#: [id number] Admission: 01/27/20 Attend Phys: Vero Travis Discharge: Date of : 51 Report #: [id number] 5. The patient is seen in collaboration with Dr. Keny Gallo. The patient instructed to call for an appointment if he needs to visit or talk about his depression prior to his next appointment. <ELECTRONICALLY SIGNED> By: Vero Travis 01/28/20 0851 [id number] Vero Travis /nt
== END ==
LOC: PAIN 06:45
DX: M54.12 Radiculopathy, cervical region (principal); G89.4 Chronic pain syndrome; M79.602 Pain in left arm; Z79.899 Other long term (current) drug therapy

== ENCOUNTER → 2020-05-25 | Outpatient (CLI) | payer OTHER ==
[~2020-05-25] VITALS: Ht 167.6 cm; Wt 100.9 kg
[~2020-05-25] MED LIST changes: +PAXIL30 MG PO
[2020-05-25 10:48] VITALS: BP 132/83
--- NOTE | 2020-05-25 11:05 | NUR ---
Pain Clinic Assessment: 1. History of Osteoarthritis: right knee/ankle? History of Rheumatoid Arthritis: Not Applicable 2. Height: 5 ft. 6 in. 167.6 cm. Weight: 222.4 lb. oz. 100.880 kg. Patient's BMI: 35.9 3. Vital Signs: BP: 132/83 Pulse: 70 Resp: 16 Temp: 02 Sat: 97 ECG Mon: 4. Pain Intensity: 8 5. Fall Risk: Dizziness: N Needs help standing or walking: N Fallen in the last 3 months: N Fall risk comments: 6. Patient on Blood Thinner: None 7. History of Hypertension: N 8. Opioid Therapy greater than 6 weeks: Y Opiate Contract Signed: 01/12/17 9. Risk Assessment Tool Provided: MOD RISK-7 10. Functional Assessment Tool: 11. Recreational Drug Use: Current within past 3 mos Drug Type: marajuana Tobacco Use: Never Smoker Tobacco Type: Amount or Packs/day: How Many Years: Alcohol Use: Past use Frequency: Quant:
--- NOTE | 2020-05-26 07:51 | HPC ---
[facility] [address] [place] [address] PAIN MANAGEMENT CONSULTATION Name: KENPRASHANT HEADLEY Room #: REG JOAQUINAdalgisa Coyle#: [id number] Admission: 05/25/20 Attend Phys: Vero Travis Discharge: Date of : 51 Report #: [id number] THIS REPORT FOR: cc: Thee Poe MD, Nader MD Hocker,Vero SANTANA ~ CC: Keny Gallo MD DATE OF SERVICE: 05/25/2020 CHIEF COMPLAINT: Chronic intractable pain, complex pain syndrome and cervical radiculopathy. HISTORY OF PRESENT ILLNESS: This is a very pleasant, slightly depressed, 64-year-old gentleman who returns to the pain clinic today for a refill of his opiate medications that he uses to help treat his complex regional pain syndrome in his left arm as well as his ongoing cervical radiculopathy. Today, the patient is complaining of pain score of 8/10, which is slightly elevated than his normal. He states that his pain is worse with weather changes and movement, especially in his left arm and hand. He does have some neuropathy in his feet. Feels as gabapentin is beneficial in controlling. The patient has had to decrease his methadone over the past week to get to this appointment, so currently he is only taking 1 methadone a day that also may have attributed to his increase in his pain score today. He usually finds his methadone is beneficial. The patient continues to complain of depression. We have had him on Paxil and have discussed increasing this medication as well as him seeing a psychologist or a psychiatrist to see if they have any other medication options. He is more interested in medications than talking to someone, he has done that in the past. He recently lost his dog that he has had for 19 years on Father's Day. He has no family, so he is basically alone, this does cause significant depression for him. He tries to be active and was volunteering in his [employer], but at this time, he has not been doing that. He has been caring for his garden, which he thinks does make him feel slightly better. We have encouraged him to walk and be active to help release some endorphins, but we will continue his Paxil as well as a referral to Dr. Brooke Kunz's groups, who does see people here in our hospital. ALLERGIES: No known drug allergies. CURRENT LIST OF MEDICATIONS: Flomax, methadone 10 mg t.i.d., gabapentin 300 mg t.i.d., Paxil 20 mg, Norvasc 5 mg, aspirin 81, and a stool softener. PATIENT'S PQRS: 1. He has osteoarthritis in his ankle. Denies any rheumatoid arthritis. [address] [address] PAIN MANAGEMENT CONSULTATION Name: PRASHANT ROGERS Room #: REG ANNAMARIE Coyle#: [id number] Admission: 05/25/20 Attend Phys: Vero Travis Discharge: Date of : 51 Report #: [id number] 2. Height is 5 feet 6 inches, weight is 222 pounds, which is an increase over his last visit by a few pounds, BMI is 35. 3. Vital signs 132/83, pulse is 70, respirations 16, oxygen sat is 97%. 4. Pain score is 8-10. 5. Denies dizziness, does not need help walking or standing, has not fallen in the last 3 months. 6. The patient is not on any blood thinners or medicine for hypertension. 7. Opiate therapy is greater than 6 weeks; therefore, an opioid signed contract is on the chart. Risk assessment tool is moderate. Functional assessment is 53/70. 8. Recreational drug use in the past. He is not a smoker and does not drink alcohol. According to the prescription monitoring system, he is past due to fill his medications; therefore, he had weaned himself down to one methadone a day. His current morphine milliequivalent is 90 according to the CDC guidelines. We will check a random drug screen on him on his next visit. PHYSICAL EXAMINATION: GENERAL: This is alert and orientated, depressed 64-year-old gentleman who appears his stated age, placing his current pain score is 8/10 today. HEENT: Normocephalic, atraumatic. Extraocular eye muscles are intact. He is wearing a mask. 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 Numbness and tingly in his bilateral feet. IMPRESSION: 1. Chronic intractable pain, left upper extremity pain with complex regional pain syndrome. 2. Cervical radiculopathy. 3. Chronic anxiety and depression. 4. Management of high risk medications under terms of written opiate agreement. We reviewed the fact that opiate medications are being used to provide analgesia adequate to support activities of daily living, not attempting to achieve a specific pain score on the 0-10 Visual Analog Scale. The current opiate medications are providing sufficient analgesia to allow the patient to participate in activities of daily living. The patient is not exhibiting any aberrant behavior suggestive of drug diversion. The patient is not having any adverse reactions to medications. The patient is not suffering from daytime somnolence or mental acuity changes. The patient is managing opiate-induced constipation with appropriate [id number]-[id number] agents and dietary considerations. The patient was counseled on concern for caution with operating [facility] [address] [place] [address] PAIN MANAGEMENT CONSULTATION Name: PRASHANT ROGERS Room #: [facility]#: [id number] Admission: 05/25/20 Attend Phys: Vero Travis Discharge: Date of : 51 Report #: [id number] a motor vehicle while using opiate medications. PLAN: 1. We discussed treatment options with him today. He feels that the medications are beneficial in treating his pain. As far as his methadone and gabapentin, we will refill those today having Dr. Gallo send his methadone electronically for 10 mg 3 times a day, #90, for today for an 8-week release. 2. I will send his gabapentin 300 mg capsules 3 times a day, #270. This is a 3-month supply with one refill. 3. We talked in great length about his depression. We have had him on Paxil 20 mg for quite some time. We will trial and increase to 30 mg to see if this helps. I also have instructed the patient to contact a psychiatrist or psychologist to discuss medications that he may take as this is not our area of expertise. I encouraged the patient not to see them just to field counsel, which may be beneficial, but to discuss medication options. The patient is willing to go. We will provide him with Brooke Kunz, who does see inpatients here in our facility, maybe she would be willing to talk and discuss medication treatments with him. 4. The patient denies any problems with constipation or daytime somnolence as a result of his medications. The patient is seen today in collaboration with Dr. Keny Gallo. The patient will return in 3 months. <ELECTRONICALLY SIGNED> By: Vero Travis 05/26/20 0751 [id number] Vero Travis /nt
== END ==
LOC: PAIN 05-14 06:45
PROVIDERS: ATTEND Clinical Nurse Specialist Adult Health
DX: G89.29 Other chronic pain (principal); M79.602 Pain in left arm; M79.622 Pain in left upper arm; M54.12 Radiculopathy, cervical region; M19.079 Primary osteoarthritis, unspecified ankle and foot; F11.90 Opioid use, unspecified, uncomplicated; F41.8 Other specified anxiety disorders

== ENCOUNTER → 2020-09-03 | Outpatient (CLI) | payer OTHER ==
[~2020-09-03] VITALS: Ht 167.6 cm; Wt 98.3 kg
[~2020-09-03] MED LIST changes: +paxil; +paxil PO
[2020-09-03 09:30] VITALS: BP 139/89
--- NOTE | 2020-09-03 09:55 | NUR ---
Pain Clinic Assessment: 1. History of Osteoarthritis: right knee/ankle? History of Rheumatoid Arthritis: Not Applicable 2. Height: 5 ft. 6 in. 167.6 cm. Weight: 216.8 lb. oz. 98.340 kg. Patient's BMI: 35.0 3. Vital Signs: BP: 139/89 Pulse: 78 Resp: 14 Temp: 02 Sat: 97 ECG Mon: 4. Pain Intensity: 8 5. Fall Risk: Dizziness: N Needs help standing or walking: N Fallen in the last 3 months: N Fall risk comments: 6. Patient on Blood Thinner: None 7. History of Hypertension: N 8. Opioid Therapy greater than 6 weeks: Y Opiate Contract Signed: 01/12/17 9. Risk Assessment Tool Provided: MOD RISK-7 10. Functional Assessment Tool: 11. Recreational Drug Use: Past greater than 3 mos Drug Type: MARAJUANA Tobacco Use: Never Smoker Tobacco Type: Amount or Packs/day: How Many Years: Alcohol Use: Past use Frequency: Quant:
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
== END ==
LOC: PAIN 06:50
PROVIDERS: ATTEND Clinical Nurse Specialist Adult Health
DX: G89.4 Chronic pain syndrome (principal); M54.16 Radiculopathy, lumbar region; F41.9 Anxiety disorder, unspecified; F32.9 Major depressive disorder, single episode, unspecified; Z79.899 Other long term (current) drug therapy; Z79.82 Long term (current) use of aspirin; Z79.891 Long term (current) use of opiate analgesic

== ENCOUNTER → 2021-01-04 | Outpatient (CLI) | payer OTHER ==
[~2021-01-04] VITALS: Ht 165.1 cm; Wt 104.8 kg
[2021-01-04 12:56] VITALS: BP 134/71
--- NOTE | 2021-01-04 13:12 | NUR ---
Pain Clinic Assessment: 1. History of Osteoarthritis: right knee/ankle? History of Rheumatoid Arthritis: Not Applicable 2. Height: 5 ft. 5 in. 165.1 cm. Weight: 231.0 lb. oz. 104.781 kg. Patient's BMI: 38.4 3. Vital Signs: BP: 134/71 Pulse: 72 Resp: 16 Temp: 02 Sat: 97 ECG Mon: 4. Pain Intensity: 10 5. Fall Risk: Dizziness: N Needs help standing or walking: N Fallen in the last 3 months: Y Fall risk comments: 6. Patient on Blood Thinner: None 7. History of Hypertension: N 8. Opioid Therapy greater than 6 weeks: Y Opiate Contract Signed: 01/12/17 9. Risk Assessment Tool Provided: MOD RISK-7 10. Functional Assessment Tool: 11. Recreational Drug Use: Past greater than 3 mos Drug Type: MARIJUANA Tobacco Use: Never Smoker Tobacco Type: Amount or Packs/day: How Many Years: Alcohol Use: Past use Frequency: Quant:
--- NOTE | 2021-01-05 09:13 | HPC ---
[facility] [address] [place] [address] PAIN MANAGEMENT CONSULTATION Name: KENPRASHANT HEADLEY Room #: REG ANNAMARIE Medley.#: [id number] Admission: 01/04/21 Attend Phys: Vero Travis Discharge: Date of : 51 Report #: [id number] THIS REPORT FOR: cc: Thee Poe MD, Nader MD Hocker,Vero SANTANA ~ DATE OF SERVICE: 01/04/2021 CHIEF COMPLAINT: Chronic intractable pain, complex regional pain syndrome and cervical radiculopathy. HISTORY OF PRESENT ILLNESS: This is a 65-year-old gentleman who returned to the pain clinic today for refill of his medications and to discuss a recent fall. The patient reports that he fell on the ice yesterday and hurt his right wrist and is tender to the touch and swollen. He did not seek any medical attention because he knew he was coming to the office today. He is wondering if we could look at his wrist. Unfortunately for him, he does suffer from complex regional pain syndrome in his left wrist, so he has had a very difficult time taking care of his own self since this fall. Today the patient is complaining of pain of 10/10. He has been without his methadone for 20-25 days per his report, he failed to make a timely appointment and just went without his medications. He said therefore his arm and left hand have been very problematic. The weather changed last week did not help any movement does increase his pain. Today, he would like refills of his methadone and his Paxil medication, which he has not been out of that medication, just his methadone therapy. ALLERGIES: No known drug allergies. CURRENT LIST OF MEDICATIONS: Paxil 10 mg, gabapentin 300 mg t.i.d., Flomax, amlodipine, aspirin, stool softener and methadone. PQRS: 1. He has known arthritic changes in his ankles and knees. Denies any rheumatoid arthritis. 2. Height is 5 feet 5 inches, weight is 231, BMI is 38. 3. Vital signs 134/71, pulse is 72, respirations 16, oxygen sat is 97%. Pain score is 10/10. 4. Fall risk: Denies dizziness, does not need assistance with ambulation. He fell yesterday. He is not on any blood thinners or medicine for hypertension. His opioid therapy is greater than 6 weeks; therefore, an opioid signed contract is on the chart. Risk is moderate. Functional assessment is 53/70. 5. Recreational drug use in the past. He is not a smoker [place] [address] PAIN MANAGEMENT CONSULTATION Name: KENPRASHANTCamille HEADLEY Room #: REG CL Leonides#: [id number] Admission: 01/04/21 Attend Phys: Vero Travis Discharge: Date of : 51 Report #: [id number] According to the prescription monitoring system, the patient filled last of his medication in October and was out of his medications since November. PHYSICAL EXAMINATION: GENERAL: This is alert and orientated, depressed 65-year-old gentleman who appears his stated age, placing his current pain score today at 10/10. He is a good historian. HEENT: Normocephalic, atraumatic. Extraocular eye muscles are intact. He is wearing a mask. MUSCULOSKELETAL: Ulna area of his right wrist, obvious deviation and swollen, tender to the touch, pain with any movement of his right wrist. His left hand is nontender to the touch with no allodynia noted due to his complex regional pain syndrome. 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 IMPRESSION: 1. Chronic intractable pain, left upper extremity, pain with complex regional pain syndrome. 2. Right wrist avulsion fracture. 3. Cervical radiculopathy. 4. Chronic anxiety and depression. 5. Management of high risk medications under terms of written opioid agreement. RADIOLOGY: Right wrist 3-view Avulsion fracture over the dorsum of the wrist, 5.5 mm. This is arising from [place], acute in appearance. PLAN: 1. We discussed treatment options with the patient today. His right wrist shows obvious trauma. It is swollen, very tender to the touch. X-rays did show an avulsion fracture of the right wrist. We did take the liberty of calling [facility], patient is calling to schedule an appointment with them currently. I encouraged him to use ice and elevate his arm until he is seen. He may possibly get a brace at the pharmacy unless they are able to get him in today. 2. The patient has been without any of his opioid medications for 20-25 days per his report; therefore, I believe we will start him lower on his methadone to avoid any medication. The patient instructed to start with 5 mg twice a day of his methadone and then increase slowly to 10 mg twice a day. This still will be a decrease from his previous dose, scripts written for methadone, #60 10 mg tablets. 3. We will give him a short script of hydrocodone 7.5/325, #10 for his acute injury and I will resend his Paxil 10 mg, #90 with one additional refill for his maintenance antidepressant medicine. 4. The patient reports not needing any gabapentin at this time. [address] [address] PAIN MANAGEMENT CONSULTATION Name: PRASHANT ROGERS Room #: REG ANNAMARIE Medley.#: [id number] Admission: 01/04/21 Attend Phys: Vero Travis Discharge: Date of : 51 Report #: [id number] 5. The patient is instructed to call at the end of the month to report how he is doing. If he has remained stable on his methadone 10 mg twice a day, we will send electronically 2 additional months of that medication. The patient is agreeable with this plan of care. 6. The patient's care discussed and collaborated with Dr. Keny Gallo via telephone today. Scripts were written by Dr. Zi Reyes. <ELECTRONICALLY SIGNED> By: Vero Travis 01/05/21 0913 1457 [id number] Vero Travis /marco
== END ==
LOC: PAIN 06:58
PROVIDERS: ATTEND Clinical Nurse Specialist Adult Health
DX: G89.4 Chronic pain syndrome (principal); M54.12 Radiculopathy, cervical region; S62.101A Fracture of unspecified carpal bone, right wrist, initial encounter for closed fracture; F41.9 Anxiety disorder, unspecified; F32.9 Major depressive disorder, single episode, unspecified; Z79.891 Long term (current) use of opiate analgesic; Z79.899 Other long term (current) drug therapy; X58.XXXA Exposure to other specified factors, initial encounter; Y93.89 Activity, other specified; Y92.89 Other specified places as the place of occurrence of the external cause; Y99.8 Other external cause status

== ENCOUNTER → 2021-01-28 | Outpatient (CLI) | payer OTHER ==
[~2021-01-28] VITALS: Ht 165.1 cm; Wt 108.0 kg
--- NOTE | ~2021-01-28 | HPC ---
[facility] [address] [place] [address] PAIN MANAGEMENT CONSULTATION Name: KENPRASHANT KAYODE Room #: REG [facility] MMaría.#: [id number] Admission: 01/28/21 Attend Phys: Vero Travis Discharge: Date of : 51 Report #: [id number] THIS REPORT FOR: cc: Thee Poe MD, Nader MD Hocker,Vero SANTANA ~ DATE OF SERVICE: 01/28/2021 CHIEF COMPLAINT: Chronic intractable pain, complex regional pain syndrome and cervical radiculopathy. HISTORY OF PRESENT ILLNESS: This is a 65-year-old gentleman who returns to the pain clinic today for discussion on his opioid medications. At our last visit, he had been without his methadone for about 3 weeks; therefore, we elected to start him at a lower dose and then see how his pain was controlled at that level. Today, he is reporting his pain as an 8/10 and would like to return to methadone 10 mg 3 times a day. The patient reports that his pain is worse in his left hand as well as his neck and is an aching, numbness and tingly sensation that was worse with any weather changes. He reports February was difficult with the significant changes in weather. Overall, he believes the medications are beneficial, but would like to continue at his previous dose, he felt he was very well controlled at that dose. Today, the patient states his right wrist is still problematic. At our last visit, we discovered he had an avulsion fracture from a fall from the previous day. He did see an orthopedic doctor at [place], and was instructed to wear a brace. He does wear that at times. It is mostly tender when he has any pressure on his wrist per his report. There is no swelling noted today. ALLERGIES: No known drug allergies. CURRENT LIST OF MEDICATIONS: Paxil 10 mg, gabapentin 300 mg t.i.d., Flomax, amlodipine, aspirin, stool softener, methadone and Senokot. PQRS: 1. He has osteoarthritis of his knee and ankle. Denies any rheumatoid arthritis. 2. Height is 5 feet 5 inches, weight is 238, BMI is 39. Vital signs 126/82, pulse is 87, respirations 16, and oxygen sat is 97%. 3. Pain score is 8/10. 4. Denies dizziness, does not need help walking or standing, has not fallen in the last 3 months. 5. The patient is not on any blood thinners, but does take medication for hypertension. Opioid therapy is greater than 6 weeks; therefore, an opioid signed contract is on the chart. Risk assessment is moderate. Functional assessment is 53/[place] [address] PAIN MANAGEMENT CONSULTATION Name: PRASHANT ROGERS Room #: REG ANNAMARIE Coyle#: [id number] Admission: 01/28/21 Attend Phys: Vero Travis Discharge: Date of : 51 Report #: [id number] 6. Recreational drug use in the past. He does not smoke and does not drink alcohol. According to the prescription monitoring system, the patient is due to fill his medications. His morphine milliequivalent is 90 mEq with his new dose according to the CDC guidelines. We did check a random drug screen on him today. PHYSICAL EXAMINATION: GENERAL: This is alert and orientated, slightly more upbeat today than normal. He does have a depressed appearance usually, 65-year-old gentleman who is rating his pain score an 8/10 today. HEENT: Normocephalic, atraumatic. Extraocular eye muscles are intact. He is wearing a mask. MUSCULOSKELETAL: He has tenderness in his right wrist with movement. No swelling noted and his left hand is nontender to the touch with no allodynia noted due to his complex regional pain syndrome. 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 IMPRESSION: 1. Chronic intractable pain, left upper extremity pain with complex regional pain syndrome. 2. Recent right wrist fracture, slowly healing. 3. Cervical radiculopathy. 4. Chronic anxiety and depression. 5. Complicated medical management utilizing scheduled opioids under written agreement. PLAN: 1. We discussed treatment options with the patient today. I encouraged him to use Voltaren gel on his wrist to see if that is beneficial in helping decrease some of his arthritic pains. He does have this medication at home. 2. We will continue him on his methadone and increase him back to his current level of 10 mg 3 times a day. Scripts will be sent for #90 for today, release on 02/26/2020 and release on 04/11/2020. These will be sent electronically by Dr. Keny Gallo. 3. The patient has had his first COVID vaccine and is scheduled for 02/09/2021. He did have slight painful arm. I encouraged him to take Tylenol and utilize heat or ice to his arm as needed after his second injection. Time spent in consultation with the patient, reviewing pertinent imaging, reviewing clinical notes and physician reports, physical examination and correlation of findings, and medical documentation to determine treatments 15 minutes. Time spent in preparation for appointment reviewing prescription monitoring system, reviewing previous records and proposed treatment options and reviewing current medications 5 minutes. Time spent in preparation in sending [address] [address] PAIN MANAGEMENT CONSULTATION Name: PRASHANT ROGERS KAYODE Room #: REG CL M.R.#: [id number] Admission: 01/28/21 Attend Phys: Vero Travis Discharge: Date of : 51 Report #: [id number] electronic prescriptions with collaborating physician, Dr. Keny Gallo and documentation of visit and plan of treatment 5 minutes. Total time spent 25 minutes. By: [id number] Vero Travis /nt
[2021-01-28 11:09] VITALS: BP 126/82
--- NOTE | 2021-01-28 11:22 | NUR ---
Pain Clinic Assessment: 1. History of Osteoarthritis: right knee/ankle? History of Rheumatoid Arthritis: Not Applicable 2. Height: 5 ft. 5 in. 165.1 cm. Weight: 238.2 lb. oz. 108.047 kg. Patient's BMI: 39.6 3. Vital Signs: BP: 126/82 Pulse: 87 Resp: 16 Temp: 02 Sat: 97 ECG Mon: 4. Pain Intensity: 8 5. Fall Risk: Dizziness: N Needs help standing or walking: N Fallen in the last 3 months: N Fall risk comments: 6. Patient on Blood Thinner: None 7. History of Hypertension: N 8. Opioid Therapy greater than 6 weeks: Y Opiate Contract Signed: 01/12/17 9. Risk Assessment Tool Provided: MOD RISK-7 10. Functional Assessment Tool: 11. Recreational Drug Use: Past greater than 3 mos Drug Type: Tobacco Use: Never Smoker Tobacco Type: Amount or Packs/day: How Many Years: Alcohol Use: Past use Frequency: Quant:
== END ==
LOC: PAIN 12-28 12:26
PROVIDERS: ATTEND Clinical Nurse Specialist Adult Health
DX: S62.101D Fracture of unspecified carpal bone, right wrist, subsequent encounter for fracture with routine healing (principal); G89.4 Chronic pain syndrome; M54.12 Radiculopathy, cervical region; F41.9 Anxiety disorder, unspecified; F32.9 Major depressive disorder, single episode, unspecified; Z79.891 Long term (current) use of opiate analgesic; X58.XXXD Exposure to other specified factors, subsequent encounter

== ENCOUNTER → 2021-05-20 | Outpatient (CLI) | payer OTHER ==
[~2021-05-20] VITALS: Ht 165.1 cm; Wt 100.3 kg
[2021-05-20 11:03] VITALS: BP 140/74
--- NOTE | 2021-05-20 11:18 | NUR ---
Pain Clinic Assessment: 1. History of Osteoarthritis: right knee/ankle? History of Rheumatoid Arthritis: Not Applicable 2. Height: 5 ft. 5 in. 165.1 cm. Weight: 221.2 lb. oz. 100.336 kg. Patient's BMI: 36.8 3. Vital Signs: BP: 140/74 Pulse: 73 Resp: 16 Temp: 02 Sat: 100 ECG Mon: 4. Pain Intensity: 8 5. Fall Risk: Dizziness: N Needs help standing or walking: N Fallen in the last 3 months: Y Fall risk comments: 6. Patient on Blood Thinner: None 7. History of Hypertension: N 8. Opioid Therapy greater than 6 weeks: Y Opiate Contract Signed: 01/12/17 9. Risk Assessment Tool Provided: MOD RISK-7 10. Functional Assessment Tool: 11. Recreational Drug Use: Past greater than 3 mos Drug Type: Tobacco Use: Never Smoker Tobacco Type: Amount or Packs/day: How Many Years: Alcohol Use: Past use Frequency: Quant:
== END ==
LOC: PAIN 06:56
PROVIDERS: ATTEND Anesthesiology Pain Medicine
DX: S22.32XA Fracture of one rib, left side, initial encounter for closed fracture (principal); G90.512 Complex regional pain syndrome I of left upper limb; M54.12 Radiculopathy, cervical region; F41.8 Other specified anxiety disorders; Z79.891 Long term (current) use of opiate analgesic; Z79.899 Other long term (current) drug therapy; W19.XXXA Unspecified fall, initial encounter; Y93.89 Activity, other specified; Y92.89 Other specified places as the place of occurrence of the external cause; Y99.8 Other external cause status

== ENCOUNTER → 2021-09-02 | Outpatient (CLI) | payer OTHER ==
[~2021-09-02] VITALS: Ht 165.1 cm; Wt 101.2 kg
[2021-09-02 10:29] VITALS: BP 123/73
--- NOTE | 2021-09-02 10:45 | NUR ---
Pain Clinic Assessment: 1. History of Osteoarthritis: right knee/ankle? History of Rheumatoid Arthritis: Not Applicable 2. Height: 5 ft. 5 in. 165.1 cm. Weight: 223.0 lb. oz. 101.152 kg. Patient's BMI: 37.1 3. Vital Signs: BP: 123/73 Pulse: 61 Resp: 16 Temp: 02 Sat: 98 ECG Mon: 4. Pain Intensity: 8 5. Fall Risk: Dizziness: N Needs help standing or walking: N Fallen in the last 3 months: N Fall risk comments: 6. Patient on Blood Thinner: None 7. History of Hypertension: N 8. Opioid Therapy greater than 6 weeks: Y Opiate Contract Signed: 01/12/17 9. Risk Assessment Tool Provided: MOD RISK-7 10. Functional Assessment Tool: 11. Recreational Drug Use: Past greater than 3 mos Drug Type: Tobacco Use: Never Smoker Tobacco Type: Amount or Packs/day: How Many Years: Alcohol Use: Past use Frequency: Quant:
== END ==
LOC: PAIN 06:58
PROVIDERS: ATTEND Clinical Nurse Specialist Adult Health
DX: M79.622 Pain in left upper arm (principal); M54.12 Radiculopathy, cervical region; F41.8 Other specified anxiety disorders; Z79.899 Other long term (current) drug therapy

== ENCOUNTER → 2021-12-20 | Outpatient (CLI) | payer OTHER ==
[~2021-12-20] VITALS: Ht 170.2 cm; Wt 104.3 kg
[2021-12-20 11:15] VITALS: BP 156/76
--- NOTE | 2021-12-20 11:19 | NUR ---
Pain Clinic Assessment: 1. History of Osteoarthritis: right knee/ankle History of Rheumatoid Arthritis: Not Applicable 2. Height: 5 ft. 7 in. 170.2 cm. Weight: 230.0 lb. oz. 104.328 kg. Patient's BMI: 36.0 3. Vital Signs: BP: 156/76 Pulse: 96 Resp: 18 Temp: 02 Sat: 97 ECG Mon: 4. Pain Intensity: 8 5. Fall Risk: Dizziness: N Needs help standing or walking: N Fallen in the last 3 months: N Fall risk comments: 6. Patient on Blood Thinner: None 7. History of Hypertension: N 8. Opioid Therapy greater than 6 weeks: Y Opiate Contract Signed: 01/12/17 9. Risk Assessment Tool Provided: MOD RISK-7 10. Functional Assessment Tool: 11. Recreational Drug Use: Past greater than 3 mos Drug Type: Tobacco Use: Never Smoker Tobacco Type: Amount or Packs/day: How Many Years: Alcohol Use: Past use Frequency: Quant:
== END ==
LOC: PAIN 07:06
PROVIDERS: ATTEND Clinical Nurse Specialist Adult Health
DX: G90.512 Complex regional pain syndrome I of left upper limb (principal); M54.12 Radiculopathy, cervical region; M47.819 Spondylosis without myelopathy or radiculopathy, site unspecified; F41.8 Other specified anxiety disorders; F32.A Depression, unspecified; Z79.899 Other long term (current) drug therapy